=== PATIENT | female | born 1970 | race Caucasian/White ===

== ENCOUNTER 2020-09-07 08:26 | Emergency (ER) | payer BC ==
[~2020-09-07] VITALS: Ht 165.1 cm; Wt 113.6 kg
[2020-09-07 08:34] VITALS: BP 166/89
== END 2020-09-07 09:25 | disposition home or self-care (01) ==
LOC: ER 08:27
DX: S89.92XA Unspecified injury of left lower leg, initial encounter (principal); M25.562 Pain in left knee; W18.39XA Other fall on same level, initial encounter; Y93.89 Activity, other specified; Y92.89 Other specified places as the place of occurrence of the external cause; Y99.8 Other external cause status
CPT/HCPCS: 29505; 73564; 99284